=== PATIENT | male | born 1955 | race Caucasian/White ===

== ENCOUNTER 2020-10-02 12:56 | Emergency (ER) | payer MEDICARE, OTHER ==
[2020-10-02] MEDS ORDERED: AUGMENTIN 875-1 EACH PO (16:15)
[2020-10-02] MEDS ORDERED: NORCO 5-325 TA1 EACH PO (16:15)
== END 2020-10-02 16:38 | disposition home or self-care (01) ==
LOC: EDBD 12:56 → FER 12:56
DX: S62.521B Displaced fracture of distal phalanx of right thumb, initial encounter for open fracture (principal); I25.2 Old myocardial infarction; S22.32XA Fracture of one rib, left side, initial encounter for closed fracture; F17.210 Nicotine dependence, cigarettes, uncomplicated; W01.198A Fall on same level from slipping, tripping and stumbling with subsequent striking against other object, initial encounter; W28.XXXA Contact with powered lawn mower, initial encounter
CPT/HCPCS: 73140; 94010